=== PATIENT | male | born 1990 | race African-American/Black ===

== ENCOUNTER 2021-08-05 01:15 | Emergency (ER) | payer MEDICAID ==
[~2021-08-05] VITALS: Ht 175.3 cm; Wt 70.8 kg
[2021-08-05 01:23] VITALS: BP 100/72
--- NOTE | 2021-08-05 01:23 | NUR ---
KASIA YAN TAKEN TO BED #6
--- NOTE | 2021-08-05 01:28 | NUR ---
Dr. Ryan examining patient.
--- NOTE | 2021-08-05 01:30 | NUR ---
KASIA, PT. IS A 31 Y/O MALE THAT CAME TO ED WITH C/O ABDOMINAL PAIN X 2 HOURS. PT. STATES RECENT SURGERY AT [facility] X1 WEEK AGO FOR SMALL BOWEL OBSTRUCTION. GSC 15. SKIN IS PINK/WARM/DRY; AAOX4 WITH EVEN AND STEADY GAIT; LUNGS CLEAR BL; HR EVEN AND REGULAR; PT DENIES ANY FEVER, CP, SOB, OR COUGH AT THIS TIME; VSS; PATIENT POSITIONED FOR COMFORT; HOB ELEVATED; BEDRAILS UP X2; BED DOWN. ER MD MADE AWARE OF PT STATUS. PMH: SMALL BOWEL OBSTRUCTION ALLERGIES: PCN
[2021-08-05] MEDS ORDERED: NACL 0.9% 1,000 ML IV ONE (01:40)
[2021-08-05] MEDS ORDERED: ONDANSETRON 4 MG/2 ML VIAL IVP ONE (01:40)
[2021-08-05] MEDS ORDERED: MORPHINE SULFATE 4 MG/ML SYR IVP ONE (01:40)
[2021-08-05] MEDS ORDERED: HYDROcodone/APAP 5/325 MG 1 TAB TAB PO ONE (01:45)
[2021-08-05] MEDS ORDERED: ONDANSETRON 4 MG ODT PO ONE (01:45)
--- NOTE | 2021-08-05 01:46 | NUR ---
PT REFUSED IV LINE, PT REQUESTING PO MEDICATION ONLY. DR. SUGGS MADE AWARE.
--- NOTE | 2021-08-05 01:55 | NUR ---
LAB AT BEDSIDE.
[2021-08-05 02:03] LABS: BASOPHILS % (AUTO) 0.4 % (0.0-2.0); EOSINOPHILS # (AUTO) 0.1 K/uL (0-0.4); EOSINOPHILS % (AUTO) 1.7 % (0.0-4.0); HEMATOCRIT 40.7 % (36-52); HEMOGLOBIN 13.4 g/dL (12.0-18.0); LYMPHOCYTES # (AUTO) 1.7 K/uL (2.0-11.5); LYMPHOCYTES % (AUTO) 25.3 % (20.5-51.1); MEAN CORPUSCULAR HEMOGLOBIN 28 pg (27-31); MEAN CORPUSCULAR HGB CONC 33 g/dL (33-37); MEAN CORPUSCULAR VOLUME 86.4 fL (80-94); MONOCYTES # (AUTO) 0.7 K/uL (0.8-1.0); MONOCYTES % (AUTO) 10.5 % (1.7-9.3); NEUTROPHILS # (AUTO) 4.1 K/uL (1.8-7.7); NEUTROPHILS % (AUTO) 62.1 % (42.2-75.2); PLATELET COUNT (AUTO) 302 K/uL (140-450); RED BLOOD CELL COUNT(AUTO) 4.71 MIL/uL (4.20-6.10); RED CELL DISTRIBUTION WIDTH 13.4 % (11.6-13.7); WHITE BLOOD COUNT (AUTO) 6.5 K/uL (4.8-10.8)
[2021-08-05 02:34] LABS: ALBUMIN 3.6 g/dL (3.4-5.0); ANION GAP 6.8 (8-16); CARBON DIOXIDE 31.7 mmol/L (21-32); CREATININE 1.5 mg/dL (0.6-1.3); POTASSIUM 4.5 mmol/L (3.5-5.1); TOTAL BILIRUBIN 0.3 mg/dL (0.0-1.0)
--- NOTE | 2021-08-05 02:40 | NUR ---
PT. UNABLE TO GIVE URINE SAMPLE AT THIS TIME. PT. STATES "I CAN'T GO RIGHT NOW."
--- NOTE | 2021-08-05 03:54 | NUR ---
Dr. Ryan examining patient.
--- NOTE | 2021-08-05 04:10 | NUR ---
PT. LAYING COMFORTABLY IN SUPINE POSITION RESTING WITH EYES CLOSED. VOICES NO COMPLAINTS AT THIS TIME.
--- NOTE | 2021-08-05 04:30 | NUR ---
PT. IN POSITION WITH URINAL IN HAND. ASKED IF HE WAS ABLE TO URINATE, PT. STATES "I AM TRYING TO RIGHT NOW."
[2021-08-05] MEDS ORDERED: MAGN1.7529 PO (04:33)
--- NOTE | 2021-08-05 04:40 | NUR ---
PT. AMBULATED TO BATHROOM WITH EVEN AND STEADY GAIT
[2021-08-05 05:01] VITALS: BP 100/72
--- NOTE | 2021-08-05 05:01 | NUR ---
Patient discharged with v/s stable. Written and verbal after care instructions given and explained. Patient alert, oriented and verbalized understanding of instructions. Ambulatory with steady gait. All questions addressed prior to discharge. ID band removed. Patient advised to follow up with PMD. Rx of MAGNESIUM CITRATE given. Patient educated on indication of medication including possible reaction and side effects. Opportunity to ask questions provided and answered.
== END 2021-08-05 05:01 | disposition home or self-care (01) ==
LOC: MED 01:15
DX: K59.00 Constipation, unspecified (principal); Z20.822 Contact with and (suspected) exposure to COVID-19
CPT/HCPCS: 36415; 74176; 80053; 81002; 83690; 85025; 87426; 99284; Q0162

== ENCOUNTER 2022-02-12 02:25 | Emergency (ER) | payer MEDICAID ==
[~2022-02-12] VITALS: Ht 175.3 cm; Wt 65.8 kg
[~2022-02-12 02:25] MED LIST: MAGN1.7529 PO
[2022-02-12 02:36] VITALS: BP 112/69
--- NOTE | 2022-02-12 02:36 | NUR ---
TO BED AMBULATORY
[2022-02-12] MEDS ORDERED: FAMOTIDINE 20 MG TAB PO ONE (03:00)
[2022-02-12] MEDS ORDERED: DICYCLOMINE HCL LIQUID 10 MG/5 ML UDC PO ONE (03:00)
--- NOTE | 2022-02-12 03:01 | NUR ---
Dr. Jacobs examining patient.
[2022-02-12] MEDS ORDERED: BISMUTH SUBSALICYLATE 15 ML UDBTL PO ONE (03:05)
[2022-02-12] MEDS ORDERED: ONDANSETRON 4 MG ODT PO ONE (03:05)
[2022-02-12 03:14] LABS: BASOPHILS % (AUTO) 0.5 % (0.0-2.0); EOSINOPHILS # (AUTO) 0.1 K/uL (0-0.4); EOSINOPHILS % (AUTO) 1.8 % (0.0-4.0); HEMATOCRIT 37.1 % (36-52); HEMOGLOBIN 12.3 g/dL (12.0-18.0); LYMPHOCYTES # (AUTO) 1.6 K/uL (2.0-11.5); LYMPHOCYTES % (AUTO) 28.1 % (20.5-51.1); MEAN CORPUSCULAR HEMOGLOBIN 28 pg (27-31); MEAN CORPUSCULAR HGB CONC 33 g/dL (33-37); MONOCYTES # (AUTO) 0.6 K/uL (0.8-1.0); MONOCYTES % (AUTO) 10.9 % (1.7-9.3); NEUTROPHILS # (AUTO) 3.4 K/uL (1.8-7.7); NEUTROPHILS % (AUTO) 58.7 % (42.2-75.2); PLATELET COUNT (AUTO) 211 K/uL (140-450); RED BLOOD CELL COUNT(AUTO) 4.32 MIL/uL (4.20-6.10); RED CELL DISTRIBUTION WIDTH 14.5 % (11.6-13.7); WHITE BLOOD COUNT (AUTO) 5.8 K/uL (4.8-10.8)
--- NOTE | 2022-02-12 03:20 | NUR ---
PATIENT PRESENTS TO ED WITH DIARRHEA AND ABD PAIN X 2 DAYS . PT STATES HE HAD 10 PLUS EPISODES OF DIARRHEA WITH DIZZINESS AND NAUSEA. DENIES V/F/COUGH/CHEST PAIN; SKIN IS PINK/WARM/DRY; AAOX4 WITH EVEN AND STEADY GAIT; LUNGS CLEAR BL; HR EVEN AND REGULAR; PATIENT STATES PAIN OF 7/10 AT THIS TIME; VSS; PATIENT POSITIONED FOR COMFORT; HOB ELEVATED; BEDRAILS UP X2; BED DOWN. ER MD MADE AWARE OF PT STATUS. NO PMH ALLERGIES: PENICILLINS NO DRUG/ALCHOL/TOBBACCO USE. NOT COVID/FLU VACCINATED.
[2022-02-12 03:34] LABS: ALBUMIN 3.3 g/dL (3.4-5.0); ANION GAP 6.5 (8-16); CARBON DIOXIDE 30.8 mmol/L (21-32); POTASSIUM 4.3 mmol/L (3.5-5.1); TOTAL BILIRUBIN 0.4 mg/dL (0.0-1.0)
--- NOTE | 2022-02-12 03:52 | NUR ---
SHAYNE COLLECTED AND TAKEN TO LAB
[2022-02-12] MEDS ORDERED: LOPE1TAB14 PO (04:52)
[2022-02-12] MEDS ORDERED: BISM262T5 PO (04:52)
[2022-02-12 05:15] VITALS: BP 100/70
--- NOTE | 2022-02-12 05:15 | NUR ---
Patient discharged with v/s stable. Written and verbal after care instructions given and explained. Patient alert, oriented and verbalized understanding of instructions. Ambulatory with steady gait. All questions addressed prior to discharge. ID band removed. Patient advised to follow up with PMD. Rx of PEPTO BISMOL/LOPERAMIDE given.Opportunity to ask questions provided and answered.
--- NOTE | 2022-02-12 05:21 | NUR ---
The patient's care was reviewed and supervised by Amarilis Valentine RN.
== END 2022-02-12 05:15 | disposition home or self-care (01) ==
LOC: MED 02:25
DX: A08.4 Viral intestinal infection, unspecified (principal); Z20.822 Contact with and (suspected) exposure to COVID-19; R19.7 Diarrhea, unspecified; Z88.0 Allergy status to penicillin; Z79.899 Other long term (current) drug therapy; Z98.890 Other specified postprocedural states
CPT/HCPCS: 36415; 80053; 83690; 85025; 87426; 99284; Q0162

== ENCOUNTER 2023-05-23 05:20 | Emergency (ER) | payer MEDICAID ==
[~2023-05-23] VITALS: Ht 175.3 cm; Wt 72.6 kg
[~2023-05-23 05:20] MED LIST changes: +BISM262T5 PO; +CEPH-588 PO; +CYCL-711 PO; +IBUP-2213 PO; +LID5T TP; +LOPE1TAB14 PO; -MAGN1.7529 PO; +MAGN296S70 PO; +MECL-231 PO; +NAPR-1704 PO
[2023-05-23 05:40] VITALS: BP 133/96; RESP 15; TEMP 97.6; O2SAT 100
--- NOTE | 2023-05-23 05:45 | NUR ---
Pt to bed 12
--- NOTE | 2023-05-23 05:52 | NUR ---
Patient resting in bed, A/Ox4, chest rise and fall symmetrical, no s/s of distress, on monitor, call light within reach.
--- NOTE | 2023-05-23 07:00 | NUR ---
Patient resting in bed, A/Ox4, chest rise and fall symmetrical, no s/s of distress, on monitor, call light within reach.
--- NOTE | 2023-05-23 07:15 | NUR ---
ER Physician at bedside assessing patient.
--- NOTE | 2023-05-23 07:20 | NUR ---
Change of shift report given to AM shift Nurse Memo RN. AM shift Nurse Memo RN verbalized understanding of report, no further questions.
[2023-05-23] MEDS ORDERED: IBUP-2213 PO (07:26)
--- NOTE | 2023-05-23 07:28 | NUR ---
PT ASLEEP, GIVEN BLANKET PER PT REQUEST POST EXAM BY
--- NOTE | 2023-05-23 08:39 | NUR ---
PATIENT IN ER BED 11
[2023-05-23 08:40] VITALS: BP 114/69; PULSE 66; RESP 18; TEMP 97.6; O2SAT 100
--- NOTE | 2023-05-23 08:47 | NUR ---
Patient discharged with v/s stable. Written and verbal after care instructions given and explained. Patient verbalized understanding. Ambulatory with steady gait. All questions addressed prior to discharge. Advised to follow up with PMD.
== END 2023-05-23 08:47 | disposition home or self-care (01) ==
LOC: MED 05:20
DX: S20.20XA Contusion of thorax, unspecified, initial encounter (principal); Z88.0 Allergy status to penicillin; Z88.8 Allergy status to other drugs, medicaments and biological substances; Z79.899 Other long term (current) drug therapy; Z98.890 Other specified postprocedural states; Y04.0XXA Assault by unarmed brawl or fight, initial encounter; Y93.89 Activity, other specified; Y92.89 Other specified places as the place of occurrence of the external cause; Y99.8 Other external cause status
CPT/HCPCS: 71101; 99283; Q0092

== ENCOUNTER 2023-06-28 01:55 | Emergency (ER) | payer MEDICAID ==
[~2023-06-28] VITALS: Ht 175.3 cm; Wt 72.1 kg
[2023-06-28 02:07] VITALS: BP 108/70; PULSE 74; RESP 20; TEMP 98; O2SAT 99
[2023-06-28] MEDS ORDERED: ACETAMINOPHEN EXTRA STRENGTH 500 MG TAB PO ONE (05:40)
[2023-06-28] MEDS ORDERED: ACET-10509 PO (05:45)
== END 2023-06-28 05:57 | disposition home or self-care (01) ==
LOC: MED 01:55
DX: S00.03XA Contusion of scalp, initial encounter (principal); Z88.0 Allergy status to penicillin; Z88.6 Allergy status to analgesic agent; Y08.89XA Assault by other specified means, initial encounter; Y93.89 Activity, other specified; Y92.89 Other specified places as the place of occurrence of the external cause; Y99.8 Other external cause status
CPT/HCPCS: 70450; 99284

== ENCOUNTER 2023-07-01 23:15 | Emergency (ER) | payer MEDICAID ==
[~2023-07-01] VITALS: Ht 175.3 cm; Wt 71.7 kg
[~2023-07-01 23:15] MED LIST changes: +ACET-10509 PO
[2023-07-01 23:58] VITALS: BP 100/54; PULSE 72; RESP 16; TEMP 97.1; O2SAT 99
[2023-07-02] VITALS: TEMP 97.1
[2023-07-02] MEDS ORDERED: ACETAMINOPHEN EXTRA STRENGTH 500 MG TAB PO ONE (03:50)
[2023-07-02] MEDS ORDERED: ACET-10509 PO (05:07)
[2023-07-02] MEDS ORDERED: LID5T TP (05:07)
[2023-07-02 05:47] VITALS: BP 113/82; PULSE 65; RESP 18; O2SAT 98
== END 2023-07-02 05:31 | disposition home or self-care (01) ==
LOC: MED 23:15
DX: S46.811A Strain of other muscles, fascia and tendons at shoulder and upper arm level, right arm, initial encounter (principal); R51.9 Headache, unspecified; K64.9 Unspecified hemorrhoids; Z88.0 Allergy status to penicillin; Z88.8 Allergy status to other drugs, medicaments and biological substances; Z79.899 Other long term (current) drug therapy; X58.XXXA Exposure to other specified factors, initial encounter; Y93.89 Activity, other specified; Y92.89 Other specified places as the place of occurrence of the external cause; Y99.8 Other external cause status
CPT/HCPCS: 73020; 99283; Q0092

== ENCOUNTER 2023-07-07 21:57 | Emergency (ER) | payer MEDICAID ==
[~2023-07-07] VITALS: Ht 175.3 cm; Wt 72.6 kg
[2023-07-07 22:07] VITALS: BP 96/54; RESP 14; O2SAT 94
[2023-07-07] MEDS ORDERED: ACETAMINOPHEN EXTRA STRENGTH 500 MG TAB PO ONE (23:20)
[2023-07-07] MEDS ORDERED: LIDOCAINE 5% 1 EA PATCH TP SCH (23:20)
[2023-07-07] MEDS ORDERED: CYCLOBENZAPRINE 10 MG TAB PO ONE (23:20)
[2023-07-07] MEDS ORDERED: CYCL-711 PO (23:54)
[2023-07-07] MEDS ORDERED: IBUP-2213 PO (23:54)
[2023-07-07] MEDS ORDERED: LID5T TP (23:54)
[2023-07-08 00:10] VITALS: BP 101/67; PULSE 78; RESP 16; TEMP 97.7; O2SAT 96
== END 2023-07-08 00:10 | disposition home or self-care (01) ==
LOC: MED 21:57
DX: S16.1XXA Strain of muscle, fascia and tendon at neck level, initial encounter (principal); G44.86 Cervicogenic headache; R42 Dizziness and giddiness; Z88.0 Allergy status to penicillin; Z88.8 Allergy status to other drugs, medicaments and biological substances; Z79.899 Other long term (current) drug therapy; X58.XXXA Exposure to other specified factors, initial encounter; Y93.89 Activity, other specified; Y92.89 Other specified places as the place of occurrence of the external cause; Y99.8 Other external cause status
CPT/HCPCS: 99284

== ENCOUNTER 2023-08-17 01:25 | Emergency (ER) | payer MEDICAID ==
[~2023-08-17] VITALS: Ht 175.3 cm; Wt 69.9 kg
[2023-08-17 02:55] VITALS: BP 115/87; PULSE 87; RESP 16; TEMP 97.1; O2SAT 99
[2023-08-17] MEDS ORDERED: METOCLOPRAMIDE 10 MG/2 ML INJ VIAL IVP ONE (05:30)
[2023-08-17] MEDS ORDERED: ACETAMINOPHEN EXTRA STRENGTH 500 MG TAB PO ONE (05:30)
[2023-08-17] MEDS ORDERED: ACET-9234 PO (06:29)
[2023-08-17] MEDS: PROCHLORPERAZINE 10 MG/2 ML VIAL IM ONE (07:20)
[2023-08-17] MEDS: diphenhydrAMINE 50 MG/ML VIAL IM ONE (07:20)
== END 2023-08-17 07:20 | disposition home or self-care (01) ==
LOC: MED 01:25
DX: G44.209 Tension-type headache, unspecified, not intractable (principal); Z88.0 Allergy status to penicillin; Z79.1 Long term (current) use of non-steroidal anti-inflammatories (NSAID); Z79.899 Other long term (current) drug therapy
CPT/HCPCS: 70450; 99284; J0780; J1200

== ENCOUNTER 2024-03-10 01:14 | Emergency (ER) | payer MEDICAID ==
[~2024-03-10] VITALS: Ht 167.6 cm; Wt 63.5 kg
[~2024-03-10 01:14] MED LIST changes: +ACET-9234 PO
[2024-03-10 01:15] VITALS: BP 135/84; PULSE 78; RESP 18; TEMP 97.9; O2SAT 100
[2024-03-10] MEDS ORDERED: CRUSHER, PILL MC ONE (01:49)
[2024-03-10] MEDS: CYCLOBENZAPRINE 10 MG TAB PO ONE (02:01)
[2024-03-10] MEDS: ACETAMINOPHEN EXTRA STRENGTH 500 MG TAB PO ONE (02:01)
[2024-03-10] MEDS ORDERED: ACET-10509 PO (02:07)
== END 2024-03-10 03:59 | disposition home or self-care (01) ==
LOC: MED 01:14
DX: S93.492A Sprain of other ligament of left ankle, initial encounter (principal); R07.89 Other chest pain; Z79.899 Other long term (current) drug therapy; W18.30XA Fall on same level, unspecified, initial encounter; Y93.89 Activity, other specified; Y92.89 Other specified places as the place of occurrence of the external cause; Y99.8 Other external cause status
CPT/HCPCS: 71045; 73610; 99284

== ENCOUNTER 2024-06-22 02:15 | Emergency (ER) | payer MEDICAID ==
[~2024-06-22] VITALS: Ht 175.3 cm; Wt 72.6 kg
[2024-06-22 02:20] VITALS: BP 117/61; PULSE 67; RESP 18; TEMP 97.8; O2SAT 99
[2024-06-22 02:30] VITALS: O2SAT 99
[2024-06-22] MEDS: ACETAMINOPHEN 325 MG TAB PO ONE (02:55)
[2024-06-22 03:10] VITALS: BP 117/61; PULSE 67; RESP 18; TEMP 97.8; O2SAT 99
== END 2024-06-22 03:44 | disposition home or self-care (01) ==
LOC: MED 02:15
DX: S93.402A Sprain of unspecified ligament of left ankle, initial encounter (principal); Z79.899 Other long term (current) drug therapy; Z88.6 Allergy status to analgesic agent; Z88.0 Allergy status to penicillin; X58.XXXA Exposure to other specified factors, initial encounter; Y92.89 Other specified places as the place of occurrence of the external cause; Y93.89 Activity, other specified; Y99.8 Other external cause status
CPT/HCPCS: 73610; 99283